=== PATIENT | female | born 1945 | race Caucasian/White ===

== ENCOUNTER 2021-05-04 16:34 | Emergency (ER) | payer MEDICARE, OTHER ==
[~2021-05-04] VITALS: Ht 175 cm; Wt 83.0 kg
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
--- NOTE | 2021-05-04 17:26 | Diagnostic Imaging Report ---
INDICATION: Chest wall pain. TIME OF EXAM: 5:09 PM COMPARISON: No prior studies are available for comparison. FINDINGS: Heart size is normal. The lungs are clear of acute infiltrates. There is no effusion or pneumothorax. Bony structures are unremarkable. IMPRESSION: No acute abnormality is detected. Report given to Daquan Becker APRN, at 5:25 PM 05/04/2021/cb Dictated by: Dictated on workstation # [id number]
[2021-05-04] MEDS ORDERED: TRM50T PO (17:48)
[2021-05-04 17:55] VITALS: BP 184/94
== END 2021-05-04 17:55 | disposition home or self-care (01) ==
LOC: ER 16:37
DX: R07.89 Other chest pain (principal)
CPT/HCPCS: 71046; 93005

== ENCOUNTER 2022-04-12 19:19 | Emergency (ER) | payer MEDICARE, OTHER ==
[~2022-04-12] VITALS: Ht 175.3 cm; Wt 83.9 kg
[~2022-04-12 19:19] MED LIST: TRM50T PO
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
[2022-04-12 20:16] LABS: BASOPHILS % (AUTO) 0 % (0-10); EOSINOPHILS # (AUTO) 0.2 10^3/uL (0.0-0.3); EOSINOPHILS % (AUTO) 2 % (0-10); HEMATOCRIT 37 % (35-52); HEMOGLOBIN 12.7 g/dL (11.5-16.0); LYMPHOCYTES % (AUTO) 21 % (12-44); MEAN CORPUSCULAR HEMOGLOBIN 31 pg (25-34); MEAN CORPUSCULAR HGB CONC 35 g/dL (32-36); MEAN CORPUSCULAR VOLUME 90 fL (80-99); MEAN PLATELET VOLUME 9.1 fL (9.0-12.2); MONOCYTES # (AUTO) 1.6 10^3/uL (0.0-1.0); MONOCYTES % (AUTO) 17 % (0-12); NEUTROPHILS # (AUTO) 5.6 10^3/uL (1.8-7.8); NEUTROPHILS % (AUTO) 59 % (42-75); PLATELET COUNT 368 10^3/uL (130-400); WHITE BLOOD COUNT 9.5 10^3/uL (4.3-11.0)
[2022-04-12 20:24] LABS: PROTHROMBIN TIME PATIENT 13.7 SEC (12.2-14.7)
[2022-04-12 20:36] LABS: ALANINE AMINOTRANSFERASE 16 U/L (0-55); ALBUMIN 3.9 GM/DL (3.2-4.5); ALKALINE PHOSPHATASE 74 U/L (40-136); AMYLASE 80 U/L (25-125); BUN/CREATININE RATIO 20; CALCIUM 9.2 MG/DL (8.5-10.1); CARBON DIOXIDE 23 MMOL/L (21-32); CHLORIDE 93 MMOL/L (98-107); CREATINE KINASE 37 U/L (29-168); CREATININE SERUM 0.99 MG/DL (0.60-1.30); GFR ESTIMATED 58; GLUCOSE 120 MG/DL (70-105); LIPASE 32 U/L (8-78); MAGNESIUM 1.7 MG/DL (1.6-2.4); POTASSIUM 3.4 MMOL/L (3.6-5.0); SODIUM 129 MMOL/L (135-145); TOTAL PROTEIN 7.2 GM/DL (6.4-8.2)
--- NOTE | 2022-04-12 20:36 | Diagnostic Imaging Report ---
EXAMINATION: Chest 1 view HISTORY: Chest pain. COMPARISON: 05/04/2021. FINDINGS: The lung volumes are normal. No focal consolidation is seen. No large pleural effusion or pneumothorax is seen. The cardiomediastinal silhouette is normal in size and contour. There is calcified aortic atherosclerotic plaque. No acute osseous abnormality is seen. IMPRESSION: 1. No acute pleuroparenchymal process. Dictated by: Dictated on workstation # [id number]
[2022-04-12 20:43] LABS: CREATINE KINASE MB 1.4 NG/ML (<6.6)
[2022-04-12] MEDS ORDERED: NS IV 1000 ML 1,000 ML IV SCH (20:45)
[2022-04-12] MEDS ORDERED: NS 100 ML (IVPB) BAG IV ONE (21:00)
[2022-04-12] MEDS ORDERED: IOHEXOL 350 MG/ML 100 ML (OMNIPAQUE 350) VIAL IV ONE (21:00)
[2022-04-12] MEDS ORDERED: HOLD METFORMIN - RECEIVED CONTRAST 20 ML VIAL IV SCH (21:00)
--- NOTE | 2022-04-12 21:22 | Diagnostic Imaging Report ---
PROCEDURE: CT head and CT cervical spine without contrast. TECHNIQUE: Multiple contiguous axial images were obtained through the brain and cervical spine without the use of intravenous contrast. Sagittal and coronal reformations through the cervical spine were then performed. Auto Exposure Controls were utilized during the CT exam to meet ALARA standards for radiation dose reduction. INDICATION: Left arm pain and numbness. COMPARISON: None. FINDINGS: CT head: No large acute territorial ischemia, mass, or hemorrhage. No midline shift or mass effect. The ventricles, cortical sulci, and basilar cisterns are patent and unremarkable. The calvarium is intact. The visualized paranasal sinuses are clear. CT cervical spine: No acute fracture or dislocation is seen in the cervical spine. No focal osseous lesions. There is straightening of the cervical spine. Vertebral body heights are well-maintained. The craniocervical junction is well-maintained. Moderate degenerative changes are seen in the cervical spine with disc osteophyte complexes and uncovertebral arthropathy. Soft tissues of the neck are unremarkable. The included lung apices are clear. IMPRESSION: 1. No hemorrhage or focal intra-axial mass. No CT evidence of large acute territorial ischemia. 2. No acute fracture or dislocation in the cervical spine. Dictated by: Dictated on workstation # [id number]
--- NOTE | 2022-04-12 21:26 | Diagnostic Imaging Report ---
PROCEDURE: CT thoracic spine without contrast. TECHNIQUE: Multiple axial computerized tomography images were obtained from the base of the thoracic spine to the vertex without intravenous contrast. Auto Exposure Controls were utilized during the CT exam to meet ALARA standards for radiation dose reduction. INDICATION: Mid back pain. COMPARISON: None. FINDINGS: No acute fracture or dislocation is seen in the thoracic spine. There is exaggerated kyphosis of the thoracic spine. No suspicious focal osseous lesions. No evidence of acute spinal canal stenosis. No high density material is seen in the spinal canal. Included lungs are clear. The paraspinal soft tissues are unremarkable. IMPRESSION: 1. No acute fracture or dislocation in the thoracic spine. Dictated by: Dictated on workstation # [id number]
--- NOTE | 2022-04-12 21:34 | Diagnostic Imaging Report ---
PROCEDURE: CT angiography of the chest with contrast. TECHNIQUE: Multiple contiguous axial images were obtained through the chest after uneventful bolus administration of intravenous contrast. 3D reconstructed CTA MIP acquisitions were also performed. Auto Exposure Controls were utilized during the CT exam to meet ALARA standards for radiation dose reduction. INDICATION: Chest pain. Shortness of breath. COMPARISON: Chest radiograph performed earlier the same date. FINDINGS: This helical CT pulmonary angiogram is diagnostic to the subsegmental level branches of the pulmonary artery and demonstrates no pulmonary emboli. The heart and great vessels are unremarkable. There is no pericardial effusion. There is no axillary, mediastinal, or hilar adenopathy. No focal consolidation or mass. Small amount of subsegmental atelectasis is seen in the lung bases. No pleural effusion is seen. Osseous structures appear normal. Moderate hiatal hernia is seen. IMPRESSION: 1. No acute pulmonary embolus. 2. Small amount of subsegmental atelectasis in the lung bases. 3. Moderate hiatal hernia. Dictated by: Dictated on workstation # [id number]
[2022-04-12] MEDS ORDERED: LIDO700A45 TP (21:52)
[2022-04-12] MEDS ORDERED: METH4TAB PO (21:52)
[2022-04-12] MEDS ORDERED: TIZA-186 PO (21:52)
[2022-04-12] MEDS ORDERED: TRM50T PO (21:52)
[2022-04-12] MEDS ORDERED: hydrALAZINE (APESOLINE) 20 MG/ML VIAL IV ONE (22:00)
[2022-04-12] MEDS ORDERED: ORPHENADRINE 60 MG/2 ML (NORFLEX) AMP (ED ONLY) IV ONE (22:00)
[2022-04-12] MEDS ORDERED: KETOROLAC 30 MG/ML VIAL IVP ONE (22:00)
[2022-04-12 22:50] VITALS: BP 172/93
== END 2022-04-12 22:50 | disposition home or self-care (01) ==
LOC: EDUNIT# 19:19 → ER 19:21
DX: S46.912A Strain of unspecified muscle, fascia and tendon at shoulder and upper arm level, left arm, initial encounter (principal); I10 Essential (primary) hypertension; E87.1 Hypo-osmolality and hyponatremia; M06.9 Rheumatoid arthritis, unspecified; X58.XXXA Exposure to other specified factors, initial encounter
CPT/HCPCS: 36415; 70450; 71045; 71275; 72125; 72128; 80053; 82150; 82550; 82553; 83690; 83735; 83880; 84484; 85025; 85610; 85730; 93005; 93041